=== PATIENT | female | born 1955 | race Caucasian/White ===

== ENCOUNTER 2017-07-12 16:11 | Emergency (ER) | payer SELFPAY ==
[2017-07-12 16:31] VITALS: TEMP 98.1
--- NOTE | 2017-07-12 16:34 | EDPHY ---
H & P Time Seen by Provider: 07/12/17 16:21 HPI/ROS: Chief complaint. Neck pain HPI. 62-year-old female presents with exacerbation of neck pain after a fall 3- 4 weeks ago. She arrives by EMS from [facility] to have an MRI of her neck. She tells me that she has had neck and back pain her whole life. She has been falling since last summer. She has been hospitalized twice at [facility] with diagnosis of polyneuropathy and then subsequently diagnosis of amyotrophic lateral sclerosis. She is wheelchair bound. 3-4 weeks ago she fell from her wheelchair with transfer and hurt her neck. She has had increasing neck pain since that time. Her physician at [facility] thinks that she may have a disc out of place. She has had previous MRIs at [facility]. She has chronically decreased movement of arms and legs and again is wheelchair bound. She does have some spontaneous movement of her legs as well. ROS Constitutional. no fever/chills, no weakness Eyes. no problems with vision ENT. no sore throat, no nasal drainage Cardiovascular. no chest pain Respiratory. no shortness of breath, no cough Abdominal. no abdominal pain, no nausea/vomiting, no diarrhea . no problems urinating MS. Neck pain Skin. no rash Lymph. no swollen glands Neuro. no headache, does not walk. Wheelchair-bound Past Medical/Surgical History: Poly neuropathy, hypothyroid, cognitive active deficits Social History: Single, nonsmoker, no alcohol Smoking Status: Never smoked Physical Exam: General Appearance: Alert well-developed female mild distress vital signs are stable Eyes:[ Pupils equal and round no pallor or injection]. ENT,[ Mouth: Mucous membranes are moist.] Respiratory: [There are no retractions, lungs are clear to auscultation.] Cardiovascular:[ Regular rate and rhythm.] Gastrointestinal: [ Abdomen is soft and nontender, no masses, bowel sounds normal.] Neurological: [Awake and alert, sensory exam is normal. Decreased motor to both arms and legs which is chronic Skin:[ Warm and dry, no rashes.] Musculoskeletal: Neck is diffusely tender but supple and the patient moves at all around. 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 No severe stenosis and no significant HNP. ED Course/Re-evaluation: Re-evaluation 7:10 p.m.. Patient is stable. She and I discussed imaging study results, treatment plan including criteria for return importance of follow-up further evaluation. She expresses understanding and agreement Differential Diagnosis: I considered cervical stenosis, HNP, DJD. Departure - Departure Disposition: Home, Routine, Self-Care Clinical Impression: Exacerbation of chronic neck pain Condition: Fair Instructions: Chronic Neck Pain (DC) Additional Instructions: Continue regular medications. Follow up with your neurologist to help figure out the actual diagnosis of your neurologic symptoms. I will give you the name of Neurosurgery to make an appointment for further evaluation of your neck pain. Tylenol 1000 mg every 4-6 hours for your neck pain Referrals: Patient,NotPresent [Unknown] - As per Instructions Marty Randhawa MD [Medical Doctor] - As per Instructions
[2017-07-12 20:54] VITALS: BP 137/73; PULSE 74; RESP 16; O2SAT 96
== END 2017-07-12 20:31 | disposition home or self-care (01) ==
LOC: EDUNIT#
DX: M54.2 Cervicalgia (principal); G89.29 Other chronic pain